=== PATIENT | female | born 1965 | race Caucasian/White ===

== ENCOUNTER 2019-11-12 07:55 | Day surgery (SDC) | payer OTHER ==
[~2019-11-12] VITALS: Ht 160 cm; Wt 60.3 kg
[~2019-11-12 07:55] MED LIST: CENTRUM SILVER1 EAC5 PO; CLARITIN10 M2 PO; KEFLEX500 MG PO; NORCO 5-325 TA1 EACH PO; TYLENOL325 MG PO; VITAMIN B122500 MCG PO; VITAMIN D310 MC1 PO; ZINC50 MG PO
--- NOTE | 2019-11-12 10:10 | NUR ---
11/12/19 1010 Nakia Evans 0988 PT ARRIVED IN PACU NON RESPONSIVE TO NOXIOUS STIMULI. RN HOLDING CHIN LIFT. 1000 PT REACTIVE AND COUGHING. PILLOW GIVEN TO SPLINT INCISION SITE. 1005 C/O L ABD PAIN 08/19. DECLINED PAIN MED AT THIS TIME.
[2019-11-12] MEDS ORDERED: IBUPROFEN600 MG PO (10:16)
[2019-11-12] MEDS ORDERED: OXYCODON-ACETA1 EAC2 PO (10:16)
[2019-11-12] MEDS ORDERED: TYLENOL EXTRA500 MG PO (10:17)
--- NOTE | 2019-11-12 11:27 | NUR ---
1050: PATIENT BACK FROM IN DAY SURGERY ROOM FROM PACU. DENIES NEED FOR PAIN MEDICATION AT THIS TIME. LEFT ABDOMEN DRESSING WITH SMALL AMOUNT OF RED DRAINAGE. IV SITE WNL. SCDs ON. PATIENT GIVEN ICE WATER. VS CHECKED. CALL LIGHT WITHIN REACH. 1105: PATIENT'S IN ROOM WITH PATIENT. DR. CALDWELL IN TO SPEAK WITH PATIENT AND . PRESCRIPTION GIVEN TO . 1120: VS CHECKED. ICE WATER REFILLED. WARM BLANKETS GIVEN TO PATIENT. CALL LIGHT WITHIN REACH.
--- NOTE | 2019-11-12 12:05 | NUR ---
1150: PATIENT AWAKENED FOR VITAL SIGN CHECK. C/O PAIN 4-5/10. PATIENT GIVEN PUDDING TO EAT BEFORE PAIN PILL ADMIN. TOLERATING WATER. IV SITE WNL. SCDs ON. AT BEDSIDE. 1200: PATIENT FINISHED PUDDING. MEDICATED FOR PAIN WITH 1 TABLET OF PERCOCET. CALL LIGHT WITHIN REACH. AT BEDSIDE.
--- NOTE | 2019-11-12 12:47 | NUR ---
1215: PATIENT ASSISTED OOB AND UP TO BATHROOM. GAIT STEADY. VOID WITHOUT DIFFICULTY. GAIT STEADY BACK TO ROOM. PATIENT GETTING DRESSED. 1230: DISCHARGE INSTRUCTIONS GIVEN TO PATIENT AND . IV DC'D WNL. TIP INTACT. DRESSING APPLIED. 1238: PATIENT DISCHARGED TO HOME WITH VIA WHEELCHAIR.
--- NOTE | 2019-11-12 13:30 | OR ---
[facility] [address], [place] [address] Signed DATE OF OPERATION: 11/12/2019 SURGEON: Marcelino Caldwell MD PREOPERATIVE DIAGNOSIS: Left spigelian hernia. POSTOPERATIVE DIAGNOSIS: Left spigelian hernia. PROCEDURE: 1. Repair of left spigelian hernia. 2. Implantation of Prolene mesh underlay technique. ANESTHESIA: General endotracheal; Lori Camp CRNA, and local 20 mL of 0.25% Marcaine with epinephrine. INDICATION: This 54-year-old white woman is a patient of [facility] and underwent a rather significant weight loss plan where she lost nearly 40 pounds. She was referred for colonoscopy and was found additionally to have a spigelian hernia on the left side. It is easily reducible and the fascial confines are reasonably well defined. She is admitted at this time to undergo spigelian hernia repair ultimately anticipating screening colonoscopy. The risks of bleeding, infection, recurrence, and other unforeseen complications related to the hernia repair reviewed with her. She understands and wished to proceed. FINDINGS: Typically external oblique was intact. The spigelian hernia defect was quite obvious, easily defined including the layers of the internal oblique, and the transversus. There was a well-developed hernia sac, which had no incarcerated viscus. The hernia sac was reduced and the properitoneal space developed and implantation of Prolene mesh in the properitoneal space undertaken to cover the defect. The fascial edges were reapproximated as well. Prolene sutures with Prolene pledgets were employed. DESCRIPTION OF PROCEDURE: The patient was brought to the operating room, given a general endotracheal anesthetic. Preoperative antibiotic Ancef was given. Sequential compression device stockings used and heparin subcutaneously administered. The area of the defect had been marked prior Electronically Signed By: MARCELINO CALDWELL MD 11/12/19 1330 PATIENT NAME: JEANINE MALDONADO OPERATIVE REPORT DATE OF : 69 REPORT #: [id number] PHYSICIAN: MARCELINO CALDWELL MD PCP: GRICELDA REN PA-C REPORT IS CONFIDENTIAL AND NOT TO BE RELEASED WITHOUT AUTHORIZATION [facility] [address], [place] [address] Signed to operation. The abdomen was prepared with a chlorhexidine solution and draped sterilely. A transverse incision was made directly over the previous yovana. Dissection was carried through the subcutaneous tissue of the abdominal wall. The external oblique was identified and there was no sign of obvious abnormality there. Palpation revealed a depression in the area which would correspond to defect. External oblique was incised along its fibers revealing the underlying layer and a hernia sac, which protruded through. The hernia sac was dissected free from the surrounding soft tissue including the internal oblique, and photographs taken. The fascial edges were grasped and the properitoneal space developed and the hernia sac reduced into the abdominal cavity. Circumferential freeing of the fascial edges was undertaken. The rectus muscle, which was medially oriented of course was examined and rectus sheath, vein and artery were identified, ultimately ligated and divided. A segment of Prolene mesh was cut to a circular configuration and secured into the properitoneal space with interrupted 0 Prolene sutures with Prolene pledgets. The fascial edges of the internal oblique were reapproximated over the mesh additionally and secured with interrupted Prolene with Prolene pledgets. The external oblique was reapproximated with running 2-0 Vicryl suture after application of 10 mL of 0.25% Marcaine with epinephrine to the deeper fascial layers. Gladys's layer was reapproximated with interrupted 2-0 Vicryl and skin closed with running subcuticular 4-0 Vicryl. Steri-Strips were applied as were two small OpSite. The patient tolerated procedure well, was ultimately extubated and transferred to the recovery room in good condition having suffered no complications. Sponge, needle, and instrument counts were reported as correct x3. MD ROBERT Norwood/SWATIL /[id number] cc: Gricelda Ren PA-C Copies: GRICELDA REN PA-C Electronically Signed By: MARCELINO CALDWELL MD 11/12/19 1330 PATIENT NAME: JEANINE MALDONADO OPERATIVE REPORT DATE OF : 69 REPORT #: [id number] PHYSICIAN: MARCELINO CALDWELL MD PCP: GRICELDA REN PA-C REPORT IS CONFIDENTIAL AND NOT TO BE RELEASED WITHOUT AUTHORIZATION [address] [place] [address] Signed ~ Electronically Signed By: MARCELINO CALDWELL MD 11/12/19 1330 PATIENT NAME: JEANINE MALDONADO OPERATIVE REPORT DATE OF : 69 REPORT #: [id number] PHYSICIAN: MARCELINO CALDWELL MD PCP: GRICELDA REN PA-C REPORT IS CONFIDENTIAL AND NOT TO BE RELEASED WITHOUT AUTHORIZATION
== END 2019-11-12 12:38 | disposition home or self-care (01) ==
LOC: DS 07:55
PROVIDERS: Surgery
PROC: 0WUF0JZ Supplement Abdominal Wall with Synthetic Substitute, Open Approach (ICD-10-PCS; principal; 2019-11-12 08:15)
DX: K43.9 Ventral hernia without obstruction or gangrene (principal); F17.210 Nicotine dependence, cigarettes, uncomplicated; Z88.0 Allergy status to penicillin; Z79.899 Other long term (current) drug therapy
CPT/HCPCS: C1781; J0330; J0690; J1100; J1644; J2001; J2250; J2704; J3010; J7121

== ENCOUNTER 2021-01-18 08:24 | Day surgery (SDC) | payer OTHER ==
[~2021-01-18] VITALS: Ht 160 cm; Wt 67.3 kg
[~2021-01-18 08:24] MED LIST changes: +ADVIL200 MG; +IBUPROFEN600 MG PO; +ICAPS AREDS2 C1 EACH PO; +OXYCODON-ACETA1 EAC2 PO; +TYLENOL EXTRA500 MG PO
[2021-01-18] MEDS ORDERED: CELECOXIB200 MG PO (11:11)
[2021-01-18] MEDS ORDERED: HYDROCODON-ACE1 EA11 PO (11:11)
--- NOTE | 2021-01-18 11:14 | NUR ---
01/18/21 1114 Zohreh Hughes 1108- PT ARRIVES TO PACU NONAROUSABLE TO NOXIOUS STIMULI WITH AN OPA IN PLACE. RESP EVEN AND UNLABORED. OXYGEN SAT HIGH 90'S TO 100% ON 6L VIA MASK. 1109- PT MOVING HER HEAD TO STIMULI. ASKED PT IF SHE WOULD LIKE THE OPA REMOVED. PT NODS YES AND OPENS HER MOUTH. OPA REMOVED. OXYGEN MASK REPLACED AT 6L. PT UPDATED THAT HER SURGERY IS OVER AND SHE IS IN THE RECOVERY ROOM.
--- NOTE | 2021-01-18 12:04 | NUR ---
PATIENT BACK TO ROOM, APPEARS AWAKE. SIPPING WATER. OXYGEN SATURATION 95% ROOM AIR. BREATHING REGULAR AND EVEN. ENCOURAGED TO COUGH AND DEEP BREATHE. PATIENT DRESSING TO LEFT SHOULDER C/D/I, CRYO IN PLACE WITH SHOULDER IMMOBILIZER IN PLACE. PATIENT REPORTS NO PAIN OR NAUSEA. CMS INTACT. STRONG ULNAR AND RADIAL PULSES. CALL LIGHT WITHINR EACH. AT BEDSIDE.
--- NOTE | 2021-01-18 13:13 | NUR ---
1300: PT REQUESTING D/C. RESP EVEN AND UNLABORED, VSS. DENIES PAIN AND NAUSEA. DRESSING C/D/I X3, CMS WNL. PT DANGLES AT THE BEDSIDE. AMBER WELL, DENIES DIZZINESS AND SOB. AMBULATES TO BR WITH STANDBY ASSIST FROM THIS RN. SUCCESSFUL POST OP VOID 900ML. BACK TO ROOM 3. PT DRESSES SELF AND PREPARES FOR D/C
--- NOTE | 2021-01-18 13:38 | NUR ---
1315: SL D/C'D WITH CATH TIP INTACT AND PRESSURE APPLIED TO SITE, WNL. D/C INSTRUCTIONS PROVIDED AND DISCUSSED ORDERED. PT VOICES UNDERSTANDING AND DENIES QUESTIONS AND CONCERNS AT THIS TIME. 1325: PT WHEELED OFF OF UNIT IN WC BY THIS RN. TRANSFERS INTO VEHICLE INDEPENDENTLY. NO PHYSICAL S/S OF DISTRESS AT THIS TIME
--- NOTE | 2021-01-22 07:29 | OR ---
[facility] [address] [place], [place] [address] Signed DATE OF OPERATION: 01/18/2021 SURGEON: Jeanne Munoz MD PREOPERATIVE DIAGNOSIS: Partial rotator cuff tear, left shoulder. POSTOPERATIVE DIAGNOSIS: Partial rotator cuff tear, left shoulder. PROCEDURE PERFORMED: Left shoulder arthroscopy with subacromial decompression and debridement of partial rotator cuff tear. PARTS INTERPRETER: Paula Hall PA-C. Paula was present and critical for all portions of the procedure. ANESTHESIA: General. BLOOD LOSS: Minimal. BRIEF HISTORY: Fátima is a 55-year-old female with pain and weakness in her shoulder. MRI was consistent with a small partial-thickness tear of the anterior aspect of the supraspinatus. Risks and benefits of operative treatment were discussed with her in which she failed nonoperative treatment. DESCRIPTION OF PROCEDURE: Once consent was obtained, she was taken to the operating room. After adequate anesthesia, she was placed in a beach chair position. All downside pressure points were well padded. The left shoulder was prepped and draped in a standard sterile fashion. The shoulder was injected with 15 mL of 0.25% Marcaine with epinephrine as was the subacromial space. Standard posterior portal was made and the scope was introduced in the shoulder. ARTHROSCOPIC FINDINGS: There was mild synovitis throughout the anterior and superior aspects of the shoulder. Electronically Signed By: JEANNE MUNOZ MD 01/22/21 0729 PATIENT NAME: FÁTIMA MALDONADO OPERATIVE REPORT DATE OF : 69 REPORT #: [id number] PHYSICIAN: JEANNE MUNOZ MD PCP: MAREK DORSEY PA-C REPORT IS CONFIDENTIAL AND NOT TO BE RELEASED WITHOUT AUTHORIZATION [facility] [address] [facility] [place] [place] [address] Signed The biceps, biceps anchor and labrum were intact. Glenohumeral surfaces were intact. The rotator cuff was noted to have some fraying and fissuring of the anterior supraspinatus, but no shaquille full-thickness tear. There was no peel back or partial tear off the tuberosity. Subacromial space showed minimal bursitis and the superior surface of the rotator cuff was soft in that area, but again, no shaquille tear. The acromion was type 1. Standard lateral portal was made and diagnostic arthroscopy was undertaken as noted above and then, the scope was placed in subacromial space. We had marked the area of the tear with a spinal needle. This was located on the superior surface. Again, there was no significant bursitis. The superior surface was then probed and debrided and excellent bleeding was obtained. There was no shaquille tear, but just fissuring of the rotator cuff itself. The undersurface of the acromion was debrided to allow good visualization of the bony conformity, which was good. The scope was withdrawn. Portals were closed with 3-0 nylon and dressed with Allevyn dressing and OpSite. She tolerated the procedure well. All sponge, needle, and instrument counts were correct. Jeanne Munoz MD BA/MODL /[id number] Copies: ~ Electronically Signed By: JEANNE MUNOZ MD 01/22/21 0729 PATIENT NAME: FÁTIMA MALDONADO OPERATIVE REPORT DATE OF : 69 REPORT #: [id number] PHYSICIAN: JEANNE MUNOZ MD PCP: MAREK DORSEY PA-C REPORT IS CONFIDENTIAL AND NOT TO BE RELEASED WITHOUT AUTHORIZATION
== END 2021-01-18 13:25 | disposition home or self-care (01) ==
LOC: DS 08:24
PROVIDERS: ATTEND Specialist
PROC: 0RNK4ZZ Release Left Shoulder Joint, Percutaneous Endoscopic Approach (ICD-10-PCS; principal; 2021-01-18 10:15)
DX: M75.112 Incomplete rotator cuff tear or rupture of left shoulder, not specified as traumatic (principal); M65.812 Other synovitis and tenosynovitis, left shoulder; F17.210 Nicotine dependence, cigarettes, uncomplicated; Z88.0 Allergy status to penicillin
CPT/HCPCS: 00450; 64415; 76942; J0330; J0690; J1100; J1885; J2001; J2250; J2704; J7121

== ENCOUNTER 2021-03-09 08:15 | Day surgery (SDC) | payer OTHER ==
[~2021-03-09] VITALS: Ht 160 cm; Wt 68.0 kg
[~2021-03-09 08:15] MED LIST changes: +CELECOXIB200 MG PO; +HYDROCODON-ACE1 EA11 PO
--- NOTE | 2021-03-09 10:38 | NUR ---
03/09/21 1038 Elsa Gates 1027 PATIENT ARRIVES TO PACU SLEEPING, AWAKENS WITH REPEATED VERBAL STIMULI. RESP EVEN AND UNLABORED, NC AT 3 LITERS. 1038 PATIENT STILL SLEEPING. NC CONTINUES AT 3 LITERS.
--- NOTE | 2021-03-10 07:46 | OR ---
[facility] [address], [place] [address] Signed DATE OF OPERATION: 03/09/2021 SURGEON: Kristian Matute MD PREOPERATIVE DIAGNOSIS: Screening. POSTOPERATIVE DIAGNOSES: 1. 4 mm polyp at 22 cm. 2. 5 mm polyp at 20 cm/sigmoid colon. PROCEDURE: Colonoscopy with hot biopsy. ESTIMATED BLOOD LOSS: None. INDICATIONS: Fátima is a 55-year-old female, asked to see me for her initial screening colonoscopy. She has no lower GI complaints. There is no family history of colon cancer or polyps. In the office, I gave her a pamphlet on colonoscopy and we had discussed the nature of that test. She understands there is risk including, but not limited to gas bloating, crampy abdominal pain, bleeding, perforation requiring surgery, and missed diagnosis. She also understands the need for IV conscious sedation. She had expressed understanding and wished to proceed. PROCEDURE NOTE: Fátima was taken into our endoscopy suite and placed in the left lateral decubitus position. She was given IV sedation with 6 mg of Versed and 100 mcg of fentanyl. A digital rectal exam was performed and she does have moderate circumferential external hemorrhoids. She had a good sphincter tone. There were no masses. The adult colonoscope was introduced, advanced all around into the cecum under direct visualization of camera without difficulty. Her prep was quite excellent. We could easily see the appendiceal orifice and the ileocecal valve. The scope was then slowly withdrawn. We took pictures throughout for photodocumentation. The two polyps found in the distal sigmoid colon were easily removed with the help of hot biopsy forceps. We did not see diverticulosis rectum, the scope was then retroflexed and she does have moderate internal hemorrhoids as well. After this, the gas was suctioned out and the colonoscope removed. Fátima tolerated procedure quite well. Electronically Signed By: KRISTIAN MATUTE MD 03/10/21 0746 PATIENT NAME: FÁTIMA MALDONADO OPERATIVE REPORT DATE OF : 69 REPORT #: [id number] PHYSICIAN: KRISTIAN MATUTE MD PCP: MAREK DORSEY PA-C REPORT IS CONFIDENTIAL AND NOT TO BE RELEASED WITHOUT AUTHORIZATION [address] [address] Signed RECOMMENDATIONS: I will see Fátima back in my office in 7 to 14 days to review her results. Kristian Matute MD ALB/MODL /[id number] cc: VANESSA Izaguirre MD Copies: MAREK DORSEY PA-C, ANDREW L MD ~ Electronically Signed By: KRISTIAN MATUTE MD 03/10/21 0746 PATIENT NAME: FÁTIMA MALDONADO OPERATIVE REPORT DATE OF : 69 REPORT #: [id number] PHYSICIAN: KRISTIAN MATUTE MD PCP: MAREK DORSEY PA-C REPORT IS CONFIDENTIAL AND NOT TO BE RELEASED WITHOUT AUTHORIZATION
--- NOTE | 2021-03-10 16:03 | PATH ---
[facility] [address], [place] [address] Signed SPECIMEN(S): A COLON POLYP AT 22 CM SPECIMEN(S): B COLON POLYP AT 20 CM SPECIMEN SOURCE: A. COLON POLYP AT 22 CM B. COLON POLYP AT 20 CM CLINICAL HISTORY: Screening. Polyps, internal/external hemorrhoids. MICROSCOPIC DESCRIPTION: Histologic sections of all submitted blocks are examined by light microscopy. These findings, together with the gross examination, support the pathologic diagnosis. FINAL PATHOLOGIC DIAGNOSIS: A. Colon, polyp at 22 cm, polypectomy: - Cauterized polyp with hyperplastic features and nuclear changes suggestive of low-grade dysplasia. - See Comment. - Negative for malignancy. B. Colon, polyp at 20 cm, polypectomy: - Cauterized hyperplastic polyp. - Negative for definitive dysplasia. - Negative for malignancy. COMMENT: Regarding specimen A: Multiple additional deeper levels are examined. Features of hyperplastic polyp are seen and the deepe portion of the crypts do show mild cellular atypia. However, the surface mucosa is severely cauterized, precluding definitive evaluation and classification as a tubular adenoma. NAL:slh:C2NR GROSS DESCRIPTION: Two specimens are received in two containers labeled with "HR". A. The specimen, labeled "HR, 1," and designated on the requisition "22 cm colon polypectomy," is received in formalin and consists of one fragment of pink-griffin tissue (0.3 cm in greatest dimension). The specimen is submitted entirely in cassette A1. B. The specimen, labeled "HR, 2," and designated on the requisition "20 cm colon polypectomy," is received in formalin and consists of two fragments of PATIENT NAME: JEANINE MALDONADO PATHOLOGY DATE OF : 69 REPORT #: [id number] PHYSICIAN: ARJUN VERMA PCP: MAREK DORSEY PA-C REPORT IS CONFIDENTIAL AND NOT TO BE RELEASED WITHOUT AUTHORIZATION [facility] [address] [place] [address] Signed pink-griffin tissue (0.3-0.4 cm in greatest dimension). The specimen is submitted entirely in cassette B1. AC (under the direct supervision of a pathologist) The Gross Description was prepared using a voice recognition system. The report was reviewed for accuracy; however, sound-alike word errors, addition and/or deletions may occur. If there is any question about this report, please contact Client Services. PERFORMING LABORATORY: The technical component was performed by [facility] [address] (Hand Glass Cutter: Laya Ferro MD; CLIA# [id number]). Professional [facility], [address] [place] [id number] (CLIA# [id number]). Diagnostician: Celina Handley MD Pathologist Electronically Signed 03/10/2021 Copies: ~ PATIENT NAME: JEANINE MALDONADO PATHOLOGY DATE OF : 69 REPORT #: [id number] PHYSICIAN: ARJUN VERMA PCP: MAREK DORSEY PA-C REPORT IS CONFIDENTIAL AND NOT TO BE RELEASED WITHOUT AUTHORIZATION
== END 2021-03-09 11:20 | disposition home or self-care (01) ==
LOC: OPS 08:15 → DSVR 08:17 → DS 09:45 → OPS 09:45
PROVIDERS: ATTEND Colon & Rectal Surgery
PROC: 0DBE8ZZ Excision of Large Intestine, Via Natural or Artificial Opening Endoscopic (ICD-10-PCS; principal; 2021-03-09 09:45)
DX: Z12.11 Encounter for screening for malignant neoplasm of colon (principal); K63.5 Polyp of colon; K64.4 Residual hemorrhoidal skin tags; K64.8 Other hemorrhoids; F17.210 Nicotine dependence, cigarettes, uncomplicated; Z88.0 Allergy status to penicillin
CPT/HCPCS: 99153; G0500; J2250; J3010; J7121